=== PATIENT | male | born 1955 | race Hispanic/Latino ===

== ENCOUNTER 2020-02-04 10:12 | Emergency (ER) | payer MEDICARE ==
[~2020-02-04] VITALS: Ht 175.3 cm; Wt 85.7 kg
--- NOTE | 2020-02-04 11:23 | Emergency Department Note ---
History of Present Illnes History of Present Illness Chief Complaint: General Medicine Complaints History of Present Illness This is a 64 year old male arrived to the ED with concerns of a clogged PEG tube- pt also stated he has leakage around the stoma site. Chief Complaint Comment PATIENT IN FROM HOME WITH COMPLAINTS OF PEG TUBE DRAINING THICK, MALODOROUS, YELLOW DRAINAGE X 1 WEEK. PATIENT DENIES PAIN AT THIS TIME, APPEARS IN NO DISTRESS, RESP EVEN AND NONLABORED, AMBULATORY WITHOUT ASSISTANCE Historian: Patient, Family Member Arrival Mode: Car Onset (how long ago): day(s) Radiation: Reports non-radiation Severity: mild Onset quality: gradual Duration (how long): day(s) Timing of current episode: constant Progression: unchanged Chronicity: new Relieving factors: none Past Medical/Family History Physician Review I have reviewed the patient's past medical and family history. Any updates have been documented here. Past Medical History Recent Fever: No Clinical Suspicion of Infectio: No New/Unexplained Change in Ment: No Past Medical History: Hypertension, Diabetes, CVA, CAD Review of Systems Review of Systems Constitutional: Reports no symptoms EENTM: Reports no symptoms Cardiovascular: Reports no symptoms Respiratory: Reports no symptoms Gastrointestinal: Reports no symptoms, Reports other (g-tube drainage) Genitourinary: Reports no symptoms Musculoskeletal: Reports no symptoms Integumentary: Reports no symptoms Neurological: Reports no symptoms Psychological: Reports no symptoms Endocrine: Reports no symptoms Hematological/Lymphatic: Reports no symptoms Physical Exam Related Data Allergies: Coded Allergies: No Known Allergies (Unverified , 02/04/20) Triage Vital Signs Vital Signs Date Time Temp Pulse Resp B/P (MAP) Pulse Ox O2 Delivery O2 Flow Rate FiO2 02/04/20 10:47 97.9 63 18 125/80 99 Room Air Vital signs reviewed: Yes Physical Exam CONSTITUTIONAL Constitutional: Present well-developed, Present well-nourished HENT HENT: Present normocephalic, Present atraumatic, Present oropharynx clear/moist, Present nose normal HENT L/R: Present left ext ear normal, Present right ext ear normal EYES Eyes: Reports PERRL, Reports conjunctivae normal NECK Neck: Present ROM normal PULMONARY Pulmonary: Present effort normal, Present breath sounds normal CARDIOVASCULAR Cardiovascular: Present regular rhythm, Present heart sounds normal, Present capillary refill normal, Present normal rate GASTROINTESTINAL Abdominal: Present soft, Present nontender, Present other (g-tube in place, flushing, no cellulitis or drainage noted around the stoma.) GENITOURINARY Genitourinary: Present exam deferred SKIN Skin: Present warm, Present dry MUSCULOSKELETAL Musculoskeletal: Present ROM normal NEUROLOGICAL Neurological: Present alert, Present oriented x 3, Present no gross motor or sensory deficits PSYCHOLOGICAL Psychological: Present mood/affect normal, Present judgement normal Results Imaging Imaging results reviewed: Yes Impressions IMPRESSION: Contrast injected through the gastrostomy tube appropriately opacifies the stomach. Signed by: Matt Batista MD on 02/04/2020 12:21 PM Assessment & Plan Medical Decision Making MDM 64 M arrived to the ED with concerns of G-tube clogged- dressing changed, g-tube in place and draining, Pt stable for D/C home. Assessment & Plan Final Impression: (1) Gastrojejunostomy tube status Depart Disposition: HOME, SELF-CARE Last Vital Signs Date Time Temp Pulse Resp B/P (MAP) Pulse Ox O2 Delivery O2 Flow Rate FiO2 02/04/20 10:47 97.9 63 18 125/80 99 Room Air RENY JIMENEZ DO Feb 04, 2020 11:22
[2020-02-04] MEDS ORDERED: DIATRIZOATE MEGL/DIATRIZOA SOD 30 ML BTL PO ONE (12:03)
--- NOTE | 2020-02-04 12:24 | Diagnostic Imaging Report ---
EXAM: Abdomen Radiograph 1 View(s) INDICATION: ^Y ^G TUBE ^[id number] ^[id number] COMPARISON: None FINDINGS: Contrast injected through the existing percutaneous gastrostomy tube appropriately opacifies the stomach. The bowel gas pattern is nonspecific. Large volume of formed stool within the colon. No abnormal soft tissue calcification. No acute osseous abnormality. IMPRESSION: Contrast injected through the gastrostomy tube appropriately opacifies the stomach. Signed by: Matt Batista MD on 02/04/2020 12:21 PM
[2020-02-04 13:26] VITALS: BP 132/68
== END 2020-02-04 13:27 | disposition home or self-care (01) ==
LOC: ER 10:45
DX: Z43.1 Encounter for attention to gastrostomy (principal); I10 Essential (primary) hypertension; E11.9 Type 2 diabetes mellitus without complications; I25.10 Atherosclerotic heart disease of native coronary artery without angina pectoris; Z86.73 Personal history of transient ischemic attack (TIA), and cerebral infarction without residual deficits
CPT/HCPCS: 74018; 99283

== ENCOUNTER 2020-03-13 12:53 | Outpatient (RCR) | payer MEDICARE | END 2020-03-14 | LOC: ST 12:53 | PROVIDERS: ATTEND Internal Medicine | DX: R13.10 Dysphagia, unspecified (principal); G46.3 Brain stem stroke syndrome ==

== ENCOUNTER 2020-03-27 10:15 | Outpatient (RCR) | payer MEDICARE | END 2020-04-13 | LOC: ST 10:15 | PROVIDERS: ATTEND Internal Medicine | DX: R13.10 Dysphagia, unspecified (principal); G46.3 Brain stem stroke syndrome ==

== ENCOUNTER → 2020-03-30 | Outpatient (CLI) | payer MEDICARE ==
--- NOTE | 2020-03-31 11:26 | Diagnostic Imaging Report ---
EXAM: MODIFIED BA. SWALLOW DATE: 03/30/2020 11:05 AM INDICATION: Dysphagia Fluoroscopy Time: 0.07 min. Reference Air Kerma (Ka, r): 79.6 mGy. FINDINGS: Various consistencies of barium were provided by the speech pathology department. The radiologist was not present for the examination. Instances were laryngeal penetration were noted within liquids. Provided images demonstrate no evidence for subglottic tracheal aspiration. IMPRESSION: No evidence for subglottic tracheal aspiration. Please refer to speech pathology notes for further details. Signed by: Dr. Abidel Goel MD on 03/31/2020 11:22 AM
== END ==
LOC: DX 10:54
PROVIDERS: ATTEND Internal Medicine
DX: R13.10 Dysphagia, unspecified (principal); G46.3 Brain stem stroke syndrome; Z11.59 Encounter for screening for other viral diseases
CPT/HCPCS: 74230; 92526; 92611; U0002